=== PATIENT | female | born 1995 | race African-American/Black ===

== ENCOUNTER 2016-12-11 00:20 | Emergency (ER) | payer MEDICAID ==
[~2016-12-11] VITALS: Ht 175.3 cm; Wt 93.0 kg
[2016-12-11 00:41] VITALS: BP 119/86
[2016-12-11 01:14] LABS: Basophils # (auto) 0.1 uL; Basophils % (auto) 0.8 % (0.0-2.0); Eosinophils # (auto) 0 uL; Eosinophils % (auto) 0.4 % (0.0-7.0); Hematocrit 38.3 % (36.0-46.0); Lymphocytes # (auto) 1.8 uL; Mean Corpuscular Hemoglobin 30.9 pg (28.0-32.0); Mean Corpuscular Hgb Conc. 33.9 g/dL (32.0-36.0); Mean Corpuscular Volume 91.3 fL (80.0-100.0); Monocytes # (auto) 0.6 uL; Monocytes % (auto) 6.4 % (0.0-12.0); Neutrophils # (auto) 6.3 uL; Neutrophils % (auto) 72.4 % (37.0-80.0); Platelet Count (auto) 258 10^3/uL (140-450); Red Cell Distribution Width 11.3 % (11.6-16.0); White Blood Cell 8.8 10^3/uL (4.4-10.8)
[2016-12-11 01:36] LABS: INR 0.92 (0.9-1.15); Partial Thromboplastin Time 27.5 sec (22.64-33.71)
[2016-12-11 01:41] LABS: Albumin 3.4 g/dL (3.4-5.0); BUN/Creatinine Ratio 11.1; Potassium 3.5 mmol/L (3.5-5.1)
[2016-12-11 01:42] LABS: Urine Bilirubin Negative (Negative); Urine Blood Negative /uL (Negative); Urine Ca Oxalate Crystal FEW (None Seen); Urine Color Yellow (Yellow); Urine Glucose Normal (Normal); Urine Granular Cast FEW /lpf (0); Urine Hyaline Cast FEW /lpf (0 - 2); Urine Ketone 1+ (Negative); Urine Mucus FEW (None Seen); Urine Nitrite Negative (Negative); Urine RBC 1 /hpf (0 - 4); Urine Squamous Epithelial Cell MOD /hpf (<5)
[2016-12-11 01:48] LABS: Bilirubin, Total 0.2 mg/dL (0.2-1.0); Total Protein 7.7 g/dL (6.4-8.2)
== END 2016-12-11 04:30 ==
LOC: ER 00:34
DX: O9A.312 Physical abuse complicating pregnancy, second trimester (principal); O99.332 Smoking (tobacco) complicating pregnancy, second trimester; F17.210 Nicotine dependence, cigarettes, uncomplicated; Z3A.16 16 weeks gestation of pregnancy
CPT/HCPCS: 36415; 76805; 80053; 81001; 84702; 85025; 85610; 85730; 86901

== ENCOUNTER 2017-04-30 15:55 | Observation (INO) | payer MEDICAID ==
[2017-04-30] MEDS ORDERED: PREN-153 OR (17:31)
== END 2017-04-30 16:45 | disposition home or self-care (01) | DRG 955 ==
LOC: LDRP 15:55
PROVIDERS: ADMIT Specialist; ATTEND Specialist
DX: O26.90 Pregnancy related conditions, unspecified, unspecified trimester (principal); Z3A.00 Weeks of gestation of pregnancy not specified
CPT/HCPCS: 59025; 81002; G0378

== ENCOUNTER 2017-05-23 02:25 | Inpatient (IN) | payer MEDICAID ==
[~2017-05-23] VITALS: Ht 175.3 cm; Wt 98.0 kg
[~2017-05-23 02:25] MED LIST: PREN-153 OR
[2017-05-23] MEDS ORDERED: LACT. RINGERS/OXYTOCIN 20UNITS 1,000 ML IV SCH ×2 (02:38→02:49)
[2017-05-23] MEDS ORDERED: LACTATED RINGER'S 1,000 ML IV SCH (02:38)
[2017-05-23] MEDS ORDERED: METHYLERGONOVINE MALEATE 0.2 MG/ML AMP IM PRN (02:45)
[2017-05-23] MEDS ORDERED: LIDOCAINE 2%HCL (LOCAL ANESTH.) INJ 20ML MDV IJ ONE (02:45)
[2017-05-23] MEDS ORDERED: WITCH HAZEL-GLYCERIN PAD TOP PRN (03:00)
[2017-05-23] MEDS ORDERED: PHISODERM TOP SOLN 240ML BTL TOP PRN (03:00)
[2017-05-23] MEDS ORDERED: DERMOPLAST 60ML BOTTLE TOP PRN (03:00)
[2017-05-23 03:29] LABS: Basophils # (auto) 0 uL; Basophils % (auto) 0.1 % (0.0-2.0); Eosinophils # (auto) 0 uL; Eosinophils % (auto) 0.6 % (0.0-7.0); Hemoglobin 12.8 g/dL (12.2-16.2); Lymphocytes # (auto) 1.8 uL; Mean Corpuscular Hemoglobin 31.2 pg (28.0-32.0); Mean Corpuscular Hgb Conc. 33.5 g/dL (32.0-36.0); Mean Corpuscular Volume 93.2 fL (80.0-100.0); Monocytes # (auto) 0.8 uL; Neutrophils # (auto) 4.4 uL; Neutrophils % (auto) 62.3 % (37.0-80.0); Nucleated Red Blood Cells % 0.1 %; Platelet Count (auto) 214 10^3/uL (140-450); Red Blood Cells 4.08 10^6/uL (4.0-5.20); Red Cell Distribution Width 13.2 % (11.8-14.3)
[2017-05-23 03:43] LABS: INR 0.87 (0.9-1.15); Partial Thromboplastin Time 28.5 sec (22.64-33.71); Prothrombin Time 9.5 sec (9.37-12.3)
[2017-05-23 03:50] LABS: Urine Bacteria MANY /hpf (None Seen); Urine Blood 2+ /uL (Negative); Urine Hyaline Cast FEW /lpf (0 - 2); Urine Mucus FEW (None Seen); Urine Specific Gravity 1.017 (1.001-1.035); Urine WBC 29 /hpf (0 - 5)
[2017-05-23 03:52] LABS: Albumin 2.6 g/dL (3.4-5.0); BUN/Creatinine Ratio 12.7; Bilirubin, Total 0.2 mg/dL (0.2-1.0); Calcium 8.5 mg/dL (8.5-10.1); Potassium 3.5 mmol/L (3.5-5.1); Total Protein 6.7 g/dL (6.4-8.2)
[2017-05-23 04:05] LABS: Alcohol, Urine < 3.0 mg/dL (0-5); Amphetamine Screen, Urine NEGATIVE (NEGATIVE); Barbiturate Scree,Urine NEGATIVE (NEGATIVE); Benzodiazephine Screen, Urine NEGATIVE (NEGATIVE); Cannabinoid Screen, Urine POSITIVE (NEGATIVE); Cocaine Screen, Urine NEGATIVE (NEGATIVE); Opiate Scree,Urine NEGATIVE (NEGATIVE); Phencyclidine Screen, Urine NEGATIVE (NEGATIVE)
[2017-05-23] MEDS ORDERED: ePHEDrine SULFATE 50 MG/ML AMP IV ONE (04:30)
[2017-05-23] MEDS ORDERED: LIDOCAINE HCL 2 %PF INJ 10ML AMP IJ ONE (04:30)
[2017-05-23] MEDS ORDERED: fentaNYL W ROPIVACAINE 150 ML EPI SCH (04:30)
[2017-05-23] MEDS ORDERED: NALOXONE HCL 0.4 MG/ML VIAL IV ONE (04:30)
[2017-05-23] MEDS ORDERED: fentaNYL CITRATE 100 MCG/2 ML VL IV ONE (04:30)
[2017-05-23] MEDS ORDERED: IBUPROFEN 600 MG TAB PO PRN ×2 (09:15→11:45)
[2017-05-23 11:30] VITALS: BP 135/67
[2017-05-23] MEDS ORDERED: ACETAMINOPHEN 325 MG TAB PO PRN (11:45)
[2017-05-23] MEDS: DOCUSATE CALCIUM 240 MG CAP PO SCH (11:50)
[2017-05-23 16:00] VITALS: BP 146/81
[2017-05-23 19:06] VITALS: BP 129/60
[2017-05-23 22:30] VITALS: BP 119/70
[2017-05-24 03:30] VITALS: BP 138/74
[2017-05-24] MEDS ORDERED: TETANUS-DIPTH-ACEL PERTUSSIS 0.5ML SYRG IM ONE (08:00)
[2017-05-24 08:11] VITALS: BP 137/87
[2017-05-24] MEDS: DOCUSATE CALCIUM 240 MG CAP PO SCH (10:00)
[2017-05-24 11:42] VITALS: BP 129/60
== END 2017-05-24 12:00 | disposition home or self-care (01) | DRG 560 ==
LOC: LDRP 02:25
PROVIDERS: ADMIT Specialist; ATTEND Specialist
PROC: 10D07Z6 Extraction of Products of Conception, Vacuum, Via Natural or Artificial Opening (ICD-10-PCS; principal; 2017-05-23)
PROC: 3E0R3BZ Introduction of Anesthetic Agent into Spinal Canal, Percutaneous Approach (ICD-10-PCS; 2017-05-23)
PROC: 00HU33Z Insertion of Infusion Device into Spinal Canal, Percutaneous Approach (ICD-10-PCS; 2017-05-23)
DX: O75.81 Maternal exhaustion complicating labor and delivery (principal); Z37.0 Single live birth; O66.5 Attempted application of vacuum extractor and forceps; Z3A.38 38 weeks gestation of pregnancy
CPT/HCPCS: 36415; 59025; 59409; 62282; 80053; 80307; 81001; 85025; 85610; 85730; 86850; 86900; 86901; 96365; 96366; J2590; J3010